=== PATIENT | male | born 1990 | race Caucasian/White ===

== ENCOUNTER 2019-04-14 03:50 | Emergency (ER) | payer OTHER ==
[~2019-04-14] VITALS: Ht 165.1 cm; Wt 79.9 kg
[2019-04-14 03:54] VITALS: BP 142/98; Ht 165.1 cm; Wt 79.9 kg
== END 2019-04-14 05:21 | disposition home or self-care (01) ==
LOC: ED 03:50
DX: N20.0 Calculus of kidney (principal)